=== PATIENT | male | born 1980 | race Caucasian/White ===

== ENCOUNTER 2017-08-10 12:36 | Inpatient (IN) | payer OTHER ==
[~2017-08-10] VITALS: Ht 182.9 cm; Wt 95.5 kg
[2017-08-10 12:42] VITALS: BP 134/84
[2017-08-10] MEDS ORDERED: PANTOPRAZOLE SO40 MG PO (12:47)
[2017-08-10] MEDS ORDERED: ZESTRIL40 MG PO (12:47)
[2017-08-10 13:29] LABS: HEMATOCRIT 48.3 % (42.0-52.0); HEMOGLOBIN 16.7 g/dl (14.0-18.0); MEAN CELL VOLUME 89.4 fl (80.0-94.0); MEAN CORPUSCULAR HGB 30.9 pg (27.0-31.0); MEAN CORPUSCULAR HGB CONC 34.6 g/dl (33.0-37.0); MEAN PLATELET VOLUME 10.1 fl (9.6-12.3); PLATELET COUNT AUTOMATED 178 10*3/uL (130-400); RED CELL DISTRI WIDTH 13.7 % (0-14.5); WHITE BLOOD COUNT 11.9 10*3/uL (4.8-10.8)
[2017-08-10 13:39] LABS: ACT PARTIAL THROMBO TIME 26.3 SECONDS (20.8-31.5)
[2017-08-10 13:44] LABS: BILIRUBIN 1+ (NEGATIVE); BLOOD 1+ (NEGATIVE); CLARITY SL CLOUDY (CLEAR); COLOR YELLOW (YELLOW); GLUCOSE NEGATIVE (NEGATIVE); KETONE 1+ (NEGATIVE); LEUKO ESTERASE TRACE (NEGATIVE); NITRITE NEGATIVE (NEGATIVE); SPECIFIC GRAVITY >= 1.030 (1.005-1.030)
[2017-08-10 13:44] LABS: ALBUMIN 3.7 gm/dl (3.1-4.5); ALKALINE PHOSPHATASE 54 U/L (45-117); BUN 21 mg/dl (7-24); CHLORIDE 101 mmol/L (98-107); CREATININE 1.38 mg/dL (0.70-1.30); SGOT/AST 67 IU/L (3-35); SGPT/ALT 72 U/L (12-78); SODIUM 135 mmol/L (136-145); TOTAL PROTEIN 6.9 gm/dL (6.4-8.2)
[2017-08-10 13:52] LABS: URINE AMPHETAMINES > 1000 (1000ng/ml); URINE BARBITURATES < 200 (200ng/ml); URINE BENZODIAZEPINES < 200 (200ng/ml); URINE CANNABINOIDS (THC) < 50 (50ng/ml); URINE COCAINE > 300 (300ng/ml); URINE METHADONE < 300 (300ng/ml); URINE OPIATES > 300 (300ng/ml)
[2017-08-10 13:54] LABS: URINE PHENCYCLIDINE < 25 (25ng/ml)
[2017-08-10 13:57] LABS: TOTAL CELLS COUNTED 100 #CELLS
[2017-08-10 13:58] LABS: PLATELET SUFFICIENCY NORMAL (NORMAL)
[2017-08-10 14:02] LABS: BACTERIA 1+; MUCOUS 1+; RBC 21-30 rbc/hpf (0-2)
[2017-08-10 14:30] VITALS: BP 127/83
[2017-08-10 16:00] VITALS: BP 127/83
[2017-08-10 20:00] VITALS: BP 134/73
[2017-08-11] VITALS: BP 127/70
[2017-08-11 08:00] VITALS: BP 131/88
[2017-08-11 12:00] VITALS: BP 119/50
[2017-08-11 20:00] VITALS: BP 135/86
[2017-08-12] VITALS: BP 125/71
[2017-08-12 08:00] VITALS: BP 129/71
[2017-08-12 08:08] LABS: BASO # 0.1 10*3/uL (0.0-0.1); BASO % 0.9 % (0.0-1.0); EOS # 0.2 10*3/uL (0.0-0.4); EOS % 3.7 % (1.0-4.0); HEMATOCRIT 51.9 % (42.0-52.0); HEMOGLOBIN 17.3 g/dl (14.0-18.0); LYMPH # 1.8 10*3/uL (1.3-4.4); LYMPH % 32.8 % (27.0-41.0); MEAN CELL VOLUME 91.4 fl (80.0-94.0); MEAN CORPUSCULAR HGB 30.5 pg (27.0-31.0); MEAN CORPUSCULAR HGB CONC 33.3 g/dl (33.0-37.0); MEAN PLATELET VOLUME 10.5 fl (9.6-12.3); MONO # 0.9 10*3/uL (0.1-1.0); MONO % 16.8 % (3.0-9.0); NEUT # 2.5 10*3/uL (2.3-7.9); NEUT % 45.4 % (47.0-73.0); PLATELET COUNT AUTOMATED 188 10*3/uL (130-400); RED BLOOD COUNT 5.68 10*6/uL (4.50-5.90); RED CELL DISTRI WIDTH 13.8 % (0-14.5); WHITE BLOOD COUNT 5.5 10*3/uL (4.8-10.8)
[2017-08-12 08:49] LABS: ALBUMIN 3.2 gm/dl (3.1-4.5); ALKALINE PHOSPHATASE 50 U/L (45-117); CHLORIDE 104 mmol/L (98-107); CREATININE 1.14 mg/dL (0.70-1.30); POTASSIUM 4.3 mmol/L (3.5-5.1); SGOT/AST 33 IU/L (3-35); SGPT/ALT 54 U/L (12-78); SODIUM 139 mmol/L (136-145); TOTAL PROTEIN 6.4 gm/dL (6.4-8.2)
[2017-08-12 09:00] LABS: BUN 10 mg/dl (7-24)
[2017-08-12 12:00] VITALS: BP 144/90
[2017-08-12 16:00] VITALS: BP 107/60
[2017-08-12 20:00] VITALS: BP 147/84
[2017-08-13] VITALS: BP 141/85
[2017-08-13 08:00] VITALS: BP 130/88
[2017-08-13 12:00] VITALS: BP 134/89
[2017-08-13 16:00] VITALS: BP 132/92
[2017-08-13 20:00] VITALS: BP 161/98
[2017-08-14] VITALS: BP 144/89
[2017-08-14 08:00] VITALS: BP 126/72
== END 2017-08-14 09:27 | disposition home or self-care (01) | DRG 897 ==
LOC: ED 12:36 → 5E 13:19 → EDHOLD 13:19 → 5E 13:40
PROVIDERS: Emergency Medicine; Registered Nurse
DX: F11.23 Opioid dependence with withdrawal (principal); F15.20 Other stimulant dependence, uncomplicated; F14.10 Cocaine abuse, uncomplicated; B19.20 Unspecified viral hepatitis C without hepatic coma; I10 Essential (primary) hypertension; K21.9 Gastro-esophageal reflux disease without esophagitis; Z79.899 Other long term (current) drug therapy; Z72.0 Tobacco use; Z82.49 Family history of ischemic heart disease and other diseases of the circulatory system; Z84.89 Family history of other specified conditions